=== PATIENT | female | born 1950 | race Hispanic/Latino ===

== ENCOUNTER 2017-07-19 22:41 | Emergency (ER) | payer OTHER ==
[~2017-07-19] VITALS: Ht 152.4 cm; Wt 69.9 kg
[2017-07-20] MEDS ORDERED: SODIUM CHLORIDE 0.9% 1000ML 1,000 ML IV STA (00:39)
[2017-07-20] MEDS ORDERED: ONDANSETRON HCL INJ 2 MG/ML VIAL IV STA (00:39)
[2017-07-20] MEDS ORDERED: MORPHINE SULFATE 2 MG/ML SYR IV STA (00:39)
[2017-07-20 00:57] LABS: BASOPHILS # (AUTO) 0.1 (0.0-0.1); BASOPHILS % 0.8 % (0.0-1.0); EOSINOPHILS # (AUTO) 0.2 (0.0-0.4); EOSINOPHILS % 1.6 % (0.0-6.0); HEMATOCRIT 37.7 % (34.2-44.1); HEMOGLOBIN 12.5 g/dL (12.0-16.0); LYMPHOCYTES # (AUTO) 2.2 (1.0-3.2); LYMPHOCYTES % 21.2 % (18.0-39.1); MEAN CORPUSCULAR HEMOGLOBIN 31.1 pg (28-32); MEAN CORPUSCULAR HGB CONC 33.2 g/dL (31-35); MEAN CORPUSCULAR VOLUME 93.8 fL (81-99); MONOCYTES # (AUTO) 0.7 (0.2-0.8); MONOCYTES % 7.1 % (4.4-11.3); NEUTROPHILS # (AUTO) 7.2 (2.1-6.9); NEUTROPHILS % 69.1 % (38.7-80.0); PLATELET COUNT 276 x10e3/uL (140-360); RED BLOOD COUNT 4.02 x10e6/uL (3.6-5.1); RED CELL DISTRIBUTION WIDTH 13.1 % (11.7-14.4)
[2017-07-20 00:59] LABS: BILIRUBIN,URINE NEGATIVE (NEGATIVE); CLARITY,URINE CLEAR (CLEAR); COLOR,URINE YELLOW (YELLOW); KETONES,URINE NEGATIVE (NEGATIVE); LEUKOCYTE ESTERASE ,URINE NEGATIVE (NEGATIVE); NITRITE,URINE NEGATIVE (NEGATIVE); PROTEIN,URINE DIPSTICK NEGATIVE (NEGATIVE); URINE UROBILINOGEN 0.2 mg/dL (0.2 - 1)
[2017-07-20 01:09] LABS: INR 0.94; PROTHROMBIN TIME 11.8 seconds (11.9-14.5)
[2017-07-20 01:10] LABS: PARTIAL THROMBOPLASTIN TIME 27.3 seconds (23.8-35.5)
[2017-07-20 01:13] LABS: BACTERIA,URINE RARE /HPF; EPITHELIAL CELLS,URINE RARE /LPF; RBC,URINE 0-5 /HPF (0-5); TRANSITIONAL EPI CELLS,URINE FEW; WBC,URINE (MAN) 0-5 /HPF (0-5)
[2017-07-20 01:22] LABS: ALANINE AMINOTRANSFERASE 11 IU/L (0-55); ALBUMIN 4.1 g/dL (3.5-5.0); ALBUMIN/GLOBULIN RATIO 1.1 (0.8-2.0); ALKALINE PHOSPHATASE 80 IU/L (40-150); AMYLASE 55 U/L (25-125); ANION GAP 13.9 mmol/L (8-16); BLOOD UREA NITROGEN 15 mg/dL (7-26); BUN/CREATININE RATIO 21 (6-25); CALCIUM 9.7 mg/dL (8.4-10.2); CARBON DIOXIDE 25 mmol/L (22-29); CHLORIDE 106 mmol/L (98-107); CREATINE KINASE 111 IU/L (29-168); CREATININE, SERUM 0.73 mg/dL (0.57-1.11); EST GLOMERULAR FILTRATION RATE > 60 ML/MIN (60-); GLUCOSE 129 mg/dL (74-118); LIPASE 14 U/L (8-78); MAGNESIUM 1.7 MG/DL (1.3-2.1); POTASSIUM 3.9 mmol/L (3.5-5.1); SODIUM 141 mmol/L (136-145)
--- NOTE | 2017-07-20 02:42 | Diagnostic Imaging Report ---
EXAM: CT ABDOMEN/PELVIS W DATE: 07/20/2017 12:39 AM INDICATION: \S\RIGHT-SIDED ABD MASS, TENDER \S\[id number] \S\[id number] COMPARISON: None TECHNIQUE: The abdomen and pelvis were scanned using a multidetector helical scanner. Coronal and sagittal reformations were obtained. Routine protocol performed. IV Contrast: 100 ml Isovue 370 FINDINGS: LOWER THORAX: No consolidations LIVER/BILIARY: No masses. No ductal dilatation. GALLBLADDER: Fundal calcifications (wall calcification or adherent stones) and 1.8 cm soft tissue density. SPLEEN: Unremarkable PANCREAS: Unremarkable ADRENALS: No nodules KIDNEYS: Symmetric perfusion. 1 cm left inferior renal lesion is technically indeterminate (HU 41). Too small to characterize right right renal hypodensity. No hydronephrosis. GI TRACT: The cecum herniates through right lateral ventral/Spigelian hernia without wall thickening or obstruction. The appendix is normal. VESSELS: Unremarkable PERITONEUM/RETROPERITONEUM: No free air or fluid LYMPH NODES: No lymphadenopathy REPRODUCTIVE ORGANS/BLADDER: Calcified left fundal fibroid. SOFT TISSUES: Bowel containing right lateral/ventral hernia as above. Small fat-containing right inguinal hernia. BONES: Multilevel degenerative changes with grade 1 anterolisthesis of L4 over L5 IMPRESSION: 1. Right lateral ventral/Spigelian hernia containing cecum without evidence of obstruction or bowel wall thickening or free fluid. 2. Gallbladder fundal soft tissue and calcification in the. Given anti-dependent location, this could reflect polyp/neoplasm. Recommend follow-up RUQ/abdominal ultrasound. 3. Indeterminate 1 cm left inferior renal lesion. This can be assessed at abdominal ultrasound or follow-up renal mass protocol CT. Signed by: Dr Cande Stevens MD on 07/20/2017 2:38 AM
[2017-07-20] MEDS ORDERED: IOPAMIDOL 370 MG/ML 200 ML INFUS..BTL INJ ONE (03:18)
[2017-07-20] MEDS ORDERED: SODIUM CHLORIDE 0.9% 50ML 50 ML ONE (03:18)
== END 2017-07-20 04:00 | disposition home or self-care (01) ==
LOC: ER 22:41
DX: K43.2 Incisional hernia without obstruction or gangrene (principal); R10.31 Right lower quadrant pain; K82.8 Other specified diseases of gallbladder
CPT/HCPCS: 36415; 74177; 80053; 81001; 82150; 82550; 82553; 83690; 83735; 84484; 85025; 85610; 85730; 99284; J2270; J2405; J7030; Q9967

== ENCOUNTER 2017-10-26 20:01 | Inpatient (IN) | payer MEDICARE ==
[~2017-10-26] VITALS: Ht 152.4 cm; Wt 77.4 kg
[2017-10-26] MEDS ORDERED: SODIUM CHLORIDE 0.9% 1000ML 1,000 ML IV SCH (20:28)
[2017-10-26 20:48] LABS: BASOPHILS # (AUTO) 0.1 (0.0-0.1); BASOPHILS % 0.6 % (0.0-1.0); EOSINOPHILS # (AUTO) 0.1 (0.0-0.4); EOSINOPHILS % 1.5 % (0.0-6.0); HEMATOCRIT 34.2 % (34.2-44.1); HEMOGLOBIN 11.7 g/dL (12.0-16.0); LYMPHOCYTES # (AUTO) 2.5 (1.0-3.2); LYMPHOCYTES % 32.3 % (18.0-39.1); MEAN CORPUSCULAR HEMOGLOBIN 31.5 pg (28-32); MEAN CORPUSCULAR HGB CONC 34.2 g/dL (31-35); MEAN CORPUSCULAR VOLUME 91.9 fL (81-99); MONOCYTES # (AUTO) 0.5 (0.2-0.8); MONOCYTES % 6.6 % (4.4-11.3); NEUTROPHILS # (AUTO) 4.6 (2.1-6.9); NEUTROPHILS % 58.7 % (38.7-80.0); PLATELET COUNT 256 x10e3/uL (140-360); RED BLOOD COUNT 3.72 x10e6/uL (3.6-5.1); RED CELL DISTRIBUTION WIDTH 13.5 % (11.7-14.4)
[2017-10-26 20:53] LABS: BILIRUBIN,URINE NEGATIVE (NEGATIVE); CLARITY,URINE SL CLOUDY (CLEAR); COLOR,URINE YELLOW (YELLOW); KETONES,URINE NEGATIVE (NEGATIVE); LEUKOCYTE ESTERASE ,URINE TRACE (NEGATIVE); NITRITE,URINE NEGATIVE (NEGATIVE); PROTEIN,URINE DIPSTICK NEGATIVE (NEGATIVE); URINE UROBILINOGEN 0.2 mg/dL (0.2 - 1)
[2017-10-26] MEDS ORDERED: MORPHINE SULFATE 2 MG/ML SYR IV STA ×2 (21:01→23:34)
[2017-10-26] MEDS ORDERED: ONDANSETRON HCL INJ 2 MG/ML VIAL IV STA (21:01)
[2017-10-26] MEDS ORDERED: SODIUM CHLORIDE 0.9% 1000ML 1,000 ML IV STA (21:01)
[2017-10-26 21:03] LABS: BACTERIA,URINE RARE /HPF; EPITHELIAL CELLS,URINE FEW /LPF; MUCUS,URINE MODERATE (RARE); WBC,URINE (MAN) 0-5 /HPF (0-5)
[2017-10-26 21:06] LABS: ALANINE AMINOTRANSFERASE 17 IU/L (0-55); ALBUMIN 4.1 g/dL (3.5-5.0); ALBUMIN/GLOBULIN RATIO 1.2 (0.8-2.0); ALKALINE PHOSPHATASE 74 IU/L (40-150); ANION GAP 13.8 mmol/L (8-16); BLOOD UREA NITROGEN 14 mg/dL (7-26); BUN/CREATININE RATIO 17 (6-25); CALCIUM 9.9 mg/dL (8.4-10.2); CARBON DIOXIDE 24 mmol/L (22-29); CHLORIDE 105 mmol/L (98-107); CREATININE, SERUM 0.83 mg/dL (0.57-1.11); EST GLOMERULAR FILTRATION RATE > 60 ML/MIN (60-); GLUCOSE 108 mg/dL (74-118); POTASSIUM 3.8 mmol/L (3.5-5.1); SODIUM 139 mmol/L (136-145)
[2017-10-26 21:07] LABS: AMYLASE 52 U/L (25-125); LIPASE 12 U/L (8-78)
[2017-10-26] MEDS ORDERED: SODIUM CHLORIDE 0.9% 50ML 50 ML ONE (21:55)
[2017-10-26] MEDS ORDERED: IOPAMIDOL 370 MG/ML 200 ML INFUS..BTL INJ ONE (21:56)
[2017-10-27] VITALS (7 sets, daily range): BP systolic 103–114; BP diastolic 55–58
--- NOTE | 2017-10-27 01:06 | Diagnostic Imaging Report ---
EXAM: CT ABDOMEN/PELVIS WOW DATE: 10/26/2017 8:36 PM INDICATION: Renal mass protocol COMPARISON: 07/20/2017 TECHNIQUE: The abdomen and pelvis were scanned using a multidetector helical scanner. Coronal and sagittal reformations were obtained. Renal mass protocol performed. IV Contrast: 100 ml Isovue 370 FINDINGS: LOWER THORAX: No consolidations LIVER/BILIARY: No masses. No ductal dilatation. GALLBLADDER: There is again fundal wall calcification and irregular 1.8 cm soft tissue along the fundus, which appears to enhance though difficult to accurately measure (HU 58 noncontrast, 77-82 postcontrast). SPLEEN: Unremarkable PANCREAS: Mildly atrophic, unchanged ADRENALS: No nodules KIDNEYS: Symmetric perfusion. 1 cm left inferior renal lesion does not enhance compatible with a cyst (HU 25 noncontrast, 20 post contrast, 22 delayed phase). Too small to characterize right right renal hypodensity. No hydronephrosis. GI TRACT: The cecum herniates through right lateral ventral/Spigelian hernia without wall thickening or obstruction. The appendix is normal. VESSELS: Mild atherosclerotic changes. PERITONEUM/RETROPERITONEUM: No free air or fluid LYMPH NODES: No lymphadenopathy REPRODUCTIVE ORGANS/BLADDER: Calcified left fundal fibroid. SOFT TISSUES: Bowel containing right lateral/ventral hernia as above. Small fat-containing right inguinal hernia. BONES: Multilevel degenerative changes with grade 1 anterolisthesis of L4 over L5 IMPRESSION: 1. Stable right lateral ventral/Spigelian hernia containing cecum without evidence of obstruction or bowel wall thickening. 2. Stable gallbladder fundal irregular soft tissue and wall calcification. Given anti-dependent location, this is suspicious for neoplasm. Recommend nonemergent gallbladder ultrasound and surgical consultation. 3. Stable 1 cm left inferior renal lesion compatible with a cyst Signed by: Dr Cande Stevens MD on 10/27/2017 1:02 AM
[2017-10-27] MEDS ORDERED: SODIUM CHLORIDE 0.9% 1000ML 1,000 ML IV SCH (02:06)
[2017-10-27] MEDS ORDERED: PANTOPRAZOLE 40 MG 10ML VIAL IV STA (02:06)
[2017-10-27] MEDS ORDERED: DEXTROSE 50% SYRINGE 50 ML IV PRN (02:15)
[2017-10-27] MEDS: SODIUM CHLORIDE 0.9% 1000ML 1,000 ML IV SCH ×3 (02:32→17:36)
--- NOTE | 2017-10-27 04:17 | Diagnostic Imaging Report ---
EXAM: US GALLBLADDER DATE: 10/27/2017 2:06 AM INDICATION: \S\RUQ PAIN \S\[id number] \S\[id number] \S\Y, COMPARISON: CT from 10/26/2017 TECHNIQUE: Transverse and longitudinal leon scale and color doppler sonographic images of the upper abdomen were obtained. FINDINGS: Evaluation is mildly degraded by overlying bowel gas. LIVER 15.5 cm in the right midclavicular line. Slightly increased echogenicity, normal contour, no masses. GALLBLADDER Positive for stones and sludge. The gallbladder wall is mildly thickened measuring 4 mm. The fundal wall calcification and apparent fundal soft tissue on the CT is poorly assessed. No pericholecystic fluid. Negative sonographic Marcelino's sign. BILE DUCTS Mild dilation of the common bile duct 1.2 cm. Common bile duct measures 1.2 cm PANCREAS: Not well seen due to overlying bowel gas RIGHT KIDNEY: 9.3 cm Echogenicity: Normal Collecting System: No hydronephrosis Stones: None Cyst/Mass: None VESSELS: Aorta: Visualized portions are within normal size limits Inferior Vena Cava: Visualized portions are normal Main Portal Vein: 0.8 cm, normal size with hepatopetal flow. FREE FLUID: None IMPRESSION: 1. Cholelithiasis/sludge with mild gallbladder wall thickening, but no pericholecystic fluid or Marcelino's sign. The fundal wall calcification and apparent fundal soft tissue on the CT is poorly assessed due to overlying bowel gas. 2. Mild extrahepatic biliary ductal dilation. Correlate with bilirubin. 3. Question mild hepatic steatosis. Discussed with Physician: MIAH WOLF MD at 4:08 AM on 10/27/2017. Signed by: Dr Cande Stevens MD on 10/27/2017 4:13 AM
[2017-10-27] MEDS ORDERED: METFORMIN HCL500 MG PO (04:26)
[2017-10-27] MEDS ORDERED: SIMVASTATIN20 MG PO (04:26)
[2017-10-27] MEDS ORDERED: VASOTEC10 M1 PO (04:26)
[2017-10-27] MEDS ORDERED: ASPIR 8181 MG PO (04:26)
[2017-10-27] MEDS ORDERED: AMLODIPINE BESY10 MG PO (04:26)
[2017-10-27] MEDS ORDERED: CENTRUM SILVER1 EAC3 PO (04:26)
[2017-10-27 05:23] LABS: CREATINE KINASE 85 IU/L (29-168)
[2017-10-27] MEDS: PIPER-TAZ 3.375 GM / NS 50ML IV SCH ×3 (06:06→17:01)
[2017-10-27] MEDS: INSULIN REGULAR, HUMAN 100 UNIT/1 ML 3ML VIAL SQ SCH ×4 (07:30→21:08)
[2017-10-27] MEDS ORDERED: HYDRALAZINE HCL 20 MG/ML VIAL IV PRN (08:00)
[2017-10-27] MEDS ORDERED: ACETAMINOPHEN 325 MG TAB PO PRN (08:00)
[2017-10-27] MEDS ORDERED: ACETAMINOPHEN 325 MG SUPP PR PRN (08:00)
[2017-10-27] MEDS: PANTOPRAZOLE 40 MG 10ML VIAL IV SCH (08:07)
[2017-10-27] MEDS: AMLODIPINE BESYLATE 10 MG TAB PO SCH (08:07)
[2017-10-27] MEDS: ENALAPRIL MALEATE 10 MG TAB PO SCH (08:08)
[2017-10-27 13:15] LABS: CREATINE KINASE 81 IU/L (29-168)
--- NOTE | 2017-10-27 20:38 | Consultation ---
DATE OF CONSULTATION: October 27, 2017 CHIEF COMPLAINT: Abdominal pain. HISTORY OF PRESENT ILLNESS: The patient is a 67-year-old female with 1-day history of pain in right lower quadrant with nausea, but no vomiting. The patient has had this pain in the past and is known to have a spigelian hernia. She denied vomiting, constipations, or diarrhea. No fevers. PAST MEDICAL HISTORY: Significant for diabetes and hypertension. PAST SURGICAL HISTORY: Positive for , inguinal and incisional hernia repair, and shoulder and knee surgery. ALLERGIES: SHE HAS NO DRUG ALLERGIES. SOCIAL HISTORY: Does not smoke or drink alcohol. REVIEW OF SYSTEMS: Unremarkable except for current complaint. PHYSICAL EXAMINATION VITAL SIGNS: Stable, afebrile. GENERAL: Patient is awake and alert, in no apparent distress. HEENT: Sclerae anicteric. NECK: Supple. LUNGS: Clear. HEART: Regular rate and rhythm. ABDOMEN: Soft with some right lower quadrant tenderness to palpation without a mass palpable. EXTREMITIES: Without cyanosis or edema. LABORATORY DATA: White cell count is 7 and hemoglobin of 12. Creatinine is 0.8. IMAGING DATA: CT of the abdomen showed stable right lateral ventral spigelian hernia containing cecum without obstruction. Ultrasound of the gallbladder revealed gallstones and sludge with mild wall thickening. There is wall calcification. ASSESSMENT: Abdominal pain secondary to spigelian hernia, nonobstructive. There is gallstone with possible chronic cholecystitis. PLAN: Laparoscopic cholecystectomy and spigelian hernia repair under anesthesia. Attendant risks discussed. Job#: [id number] JAMAR
[2017-10-27] MEDS: SIMVASTATIN 20 MG TAB PO SCH (21:08)
[2017-10-28] VITALS: BP 111/54
[2017-10-28] MEDS: PIPER-TAZ 3.375 GM / NS 50ML IV SCH ×5 (00:09→23:48)
[2017-10-28] MEDS: SODIUM CHLORIDE 0.9% 1000ML 1,000 ML IV SCH (00:11)
[2017-10-28 00:38] LABS: CREATINE KINASE 71 IU/L (29-168)
[2017-10-28 04:00] VITALS: BP 108/51
[2017-10-28 04:41] LABS: BASOPHILS % 0.9 % (0.0-1.0); EOSINOPHILS # (AUTO) 0.1 (0.0-0.4); EOSINOPHILS % 2.8 % (0.0-6.0); HEMATOCRIT 29.9 % (34.2-44.1); HEMOGLOBIN 9.9 g/dL (12.0-16.0); LYMPHOCYTES # (AUTO) 0.9 (1.0-3.2); LYMPHOCYTES % 19.6 % (18.0-39.1); MEAN CORPUSCULAR HGB CONC 33.1 g/dL (31-35); MEAN CORPUSCULAR VOLUME 93.7 fL (81-99); MONOCYTES # (AUTO) 0.4 (0.2-0.8); MONOCYTES % 8.7 % (4.4-11.3); NEUTROPHILS # (AUTO) 3.2 (2.1-6.9); NEUTROPHILS % 67.8 % (38.7-80.0); PLATELET COUNT 193 x10e3/uL (140-360); RED BLOOD COUNT 3.19 x10e6/uL (3.6-5.1); RED CELL DISTRIBUTION WIDTH 13.5 % (11.7-14.4)
[2017-10-28 04:59] LABS: CHOL/HDL RATIO 2.4 (3.0-3.6); MAGNESIUM 1.7 MG/DL (1.3-2.1)
[2017-10-28 05:01] LABS: ALANINE AMINOTRANSFERASE 13 IU/L (0-55); ALBUMIN/GLOBULIN RATIO 1.3 (0.8-2.0); ALKALINE PHOSPHATASE 56 IU/L (40-150); ANION GAP 9.8 mmol/L (8-16); BLOOD UREA NITROGEN 10 mg/dL (7-26); BUN/CREATININE RATIO 14 (6-25); CALCIUM 8.7 mg/dL (8.4-10.2); CARBON DIOXIDE 25 mmol/L (22-29); CHLORIDE 112 mmol/L (98-107); CREATININE, SERUM 0.74 mg/dL (0.57-1.11); EST GLOMERULAR FILTRATION RATE > 60 ML/MIN (60-); GLUCOSE 109 mg/dL (74-118); POTASSIUM 3.8 mmol/L (3.5-5.1); SODIUM 143 mmol/L (136-145)
[2017-10-28 05:10] LABS: ALBUMIN 3.1 g/dL (3.5-5.0)
[2017-10-28 05:14] LABS: B-TYPE NATRIURETIC PEPTIDE2 144.9 pg/mL (0-100)
[2017-10-28 05:21] LABS: FREE T4 (FREE THYROXINE) 0.89 ng/dL (0.9-1.8); THYROID STIMULATING HORMONE 1.74 uIU/mL (0.350-4.940)
[2017-10-28] MEDS: INSULIN REGULAR, HUMAN 100 UNIT/1 ML 3ML VIAL SQ SCH ×4 (07:30→21:00)
[2017-10-28] MEDS: PANTOPRAZOLE 40 MG 10ML VIAL IV SCH (08:20)
[2017-10-28] MEDS: AMLODIPINE BESYLATE 10 MG TAB PO SCH (08:20)
[2017-10-28] MEDS: ENALAPRIL MALEATE 10 MG TAB PO SCH (09:00)
[2017-10-28] MEDS ORDERED: SODIUM CHLORIDE 0.9% 250ML 250 ML ONE (12:25)
[2017-10-28 16:42] VITALS: BP 119/55
[2017-10-28 20:00] VITALS: BP 126/58
[2017-10-28] MEDS: SIMVASTATIN 20 MG TAB PO SCH (21:03)
[2017-10-28 23:05] VITALS: BP 126/58
[2017-10-29] VITALS (7 sets, daily range): BP systolic 107–131; BP diastolic 51–62
[2017-10-29 04:05] LABS: BASOPHILS % 0.6 % (0.0-1.0); EOSINOPHILS # (AUTO) 0.1 (0.0-0.4); EOSINOPHILS % 2.7 % (0.0-6.0); HEMATOCRIT 33.3 % (34.2-44.1); HEMOGLOBIN 11.1 g/dL (12.0-16.0); LYMPHOCYTES # (AUTO) 1.2 (1.0-3.2); LYMPHOCYTES % 22.8 % (18.0-39.1); MEAN CORPUSCULAR HEMOGLOBIN 31.2 pg (28-32); MEAN CORPUSCULAR HGB CONC 33.3 g/dL (31-35); MEAN CORPUSCULAR VOLUME 93.5 fL (81-99); MONOCYTES # (AUTO) 0.4 (0.2-0.8); MONOCYTES % 8.5 % (4.4-11.3); NEUTROPHILS # (AUTO) 3.4 (2.1-6.9); NEUTROPHILS % 65.2 % (38.7-80.0); PLATELET COUNT 214 x10e3/uL (140-360); RED BLOOD COUNT 3.56 x10e6/uL (3.6-5.1); RED CELL DISTRIBUTION WIDTH 13.5 % (11.7-14.4)
[2017-10-29 04:27] LABS: ANION GAP 13.5 mmol/L (8-16); BLOOD UREA NITROGEN 8 mg/dL (7-26); BUN/CREATININE RATIO 11 (6-25); CALCIUM 9.3 mg/dL (8.4-10.2); CARBON DIOXIDE 24 mmol/L (22-29); CHLORIDE 110 mmol/L (98-107); CREATININE, SERUM 0.76 mg/dL (0.57-1.11); EST GLOMERULAR FILTRATION RATE > 60 ML/MIN (60-); GLUCOSE 107 mg/dL (74-118); POTASSIUM 3.5 mmol/L (3.5-5.1); SODIUM 144 mmol/L (136-145)
[2017-10-29] MEDS: PIPER-TAZ 3.375 GM / NS 50ML IV SCH ×3 (06:35→17:51)
[2017-10-29] MEDS: INSULIN REGULAR, HUMAN 100 UNIT/1 ML 3ML VIAL SQ SCH ×4 (07:30→21:00)
[2017-10-29] MEDS ORDERED: PIPER-TAZ 3.375 GM 50 ML ONE (12:30)
[2017-10-29] MEDS: ONDANSETRON HCL INJ 2 MG/ML VIAL IV PRN ×2 (13:41→19:15)
[2017-10-29] MEDS: MORPHINE SULFATE 2 MG/ML SYR IV PRN ×3 (13:41→23:29)
[2017-10-29] MEDS: ENALAPRIL MALEATE 10 MG TAB PO SCH (14:00)
[2017-10-29] MEDS: AMLODIPINE BESYLATE 10 MG TAB PO SCH (14:00)
--- NOTE | 2017-10-29 14:34 | Operative Report ---
DATE OF PROCEDURE: October 29, 2017 PREOPERATIVE DIAGNOSIS: 1. Cholecystitis. 2. Right spigelian hernia. POSTOPERATIVE DIAGNOSIS: 1. Cholecystitis. 1. Right spigelian hernia. OPERATIVE PROCEDURE: 1. Laparoscopic cholecystectomy. 2. Right spigelian hernia repair. ANESTHESIA: General endotracheal. INDICATIONS: A 67-year-old female with a history of right lower quadrant pain, and CT scan showed incarcerated right spigelian hernia. The gallbladder also showed calcification with chronic inflammation. Patient had consented for a cholecystectomy and repair of right spigelian hernia with the attendant risks discussed. DESCRIPTION OF PROCEDURE: The patient was brought to the OR, intubated. Abdomen prepped with alcohol and draped in sterile fashion. A left upper quadrant subcostal direct port access was carried out and insufflation then begun. Under direct vision, other port sites were placed in the umbilical and right upper quadrant. The gallbladder was noted to be chronically inflamed. There was a mass in the fundal aspect of the gallbladder, which was grasped at the fundus and retracted in a cephalad direction, the neck of the gallbladder retracted laterally. With blunt and sharp dissection, cystic artery and cystic duct were isolated and triple-clipped with the junction with the common bile duct noted before dividing the cystic artery and cystic duct between clips. Gallbladder detached from the liver with cautery and taken out through the umbilical port site. Operative field was irrigated, hemostasis achieved. We then made a right lower quadrant incision down to the external oblique fascia, which was then incised in the direction of its fibers. The underlying muscle was split, and the hernia defect was noted. A large hernia sac was dissected off the edge of the abdominal wall, and the preperitoneal space was developed circumferentially down to the Darnell ligament medially and the iliac crest laterally. We then proceeded to deploy a large piece of Prolene mesh 6 x 4 inches then deployed into the preperitoneal space and anchored medially to the Darnell ligament with a stitch of 2-0 Prolene suture. With the mesh covering the defect and the wound irrigated, hemostasis achieved, we then proceeded to close, the muscular layers closed with interrupted 2-0 Vicryl anchoring the mesh into the closure. The external oblique fascia was then closed over the abdominal wall muscle with a running 2-0 Prolene stitch. Skin was closed with subcuticular stitch of 4-0 Vicryl. Patient tolerated the procedure well and was extubated and transported to the recovery room. Estimated blood loss 10 mL. Job#: [id number] EV
[2017-10-29] MEDS ORDERED: MIDAZOLAM HCL 2 MG/2 ML VIAL ONE (14:50)
[2017-10-29] MEDS ORDERED: FENTANYL CITRATE/PF 100MCG/2 ML INJ ONE (14:50)
[2017-10-29] MEDS: PANTOPRAZOLE 40 MG 10ML VIAL IV SCH (15:22)
[2017-10-29] MEDS ORDERED: BUPIVACAINE 0.5%/EPI 30 ML SDV INJ ONE (17:46)
[2017-10-29] MEDS ORDERED: DEXAMETHASONE SOD PHOS INJ 4 MG/ML VIAL ONE (17:54)
[2017-10-29] MEDS ORDERED: PROPOFOL IV EMULSION 10 MG/ML 20 ML VIAL ONE (17:54)
[2017-10-29] MEDS ORDERED: ROCURONIUM BROMIDE 10 MG/ML 5ML VIAL ONE (17:54)
[2017-10-29] MEDS ORDERED: ONDANSETRON HCL INJ 2 MG/ML VIAL ONE (17:54)
[2017-10-29] MEDS ORDERED: LIDOCAINE HCL 2% LOCAL INJ 5 ML SDV VIAL INJ ONE (17:54)
[2017-10-29] MEDS ORDERED: EPHEDRINE SULFATE INJ 50 MG/10 ML SYR ONE (17:54)
[2017-10-29] MEDS ORDERED: SEVOFLURANE INHAL SOLN 250 ML PEN BTL ONE (17:54)
[2017-10-29] MEDS ORDERED: NEOSTIGMINE 5 MG/5ML SYR ONE (17:54)
[2017-10-29] MEDS ORDERED: GLYCOPYRROLATE INJ 1MG/ 5 ML SYR ONE (17:54)
[2017-10-29] MEDS ORDERED: CEFOXITIN SOD 1 GM VIAL ONE (17:54)
[2017-10-29] MEDS: SIMVASTATIN 20 MG TAB PO SCH (21:00)
[2017-10-30] VITALS (8 sets, daily range): BP systolic 103–149; BP diastolic 52–67
[2017-10-30] MEDS: ONDANSETRON HCL INJ 2 MG/ML VIAL IV PRN (00:10)
[2017-10-30] MEDS: PIPER-TAZ 3.375 GM / NS 50ML IV SCH ×4 (00:10→17:45)
[2017-10-30] MEDS ORDERED: MORPHINE SULFATE 2 MG/ML SYR IV PRN ×2 (02:45→11:45)
[2017-10-30 03:52] LABS: BASOPHILS % 0.2 % (0.0-1.0); EOSINOPHILS % 0.1 % (0.0-6.0); HEMATOCRIT 35.9 % (34.2-44.1); LYMPHOCYTES # (AUTO) 0.8 (1.0-3.2); LYMPHOCYTES % 5.1 % (18.0-39.1); MEAN CORPUSCULAR HEMOGLOBIN 31.3 pg (28-32); MEAN CORPUSCULAR HGB CONC 33.4 g/dL (31-35); MEAN CORPUSCULAR VOLUME 93.5 fL (81-99); MONOCYTES # (AUTO) 0.9 (0.2-0.8); MONOCYTES % 5.7 % (4.4-11.3); NEUTROPHILS # (AUTO) 13.7 (2.1-6.9); NEUTROPHILS % 88.4 % (38.7-80.0); PLATELET COUNT 251 x10e3/uL (140-360); RED BLOOD COUNT 3.84 x10e6/uL (3.6-5.1); RED CELL DISTRIBUTION WIDTH 13.6 % (11.7-14.4)
[2017-10-30 04:11] LABS: ALBUMIN 3.9 g/dL (3.5-5.0); ANION GAP 18.3 mmol/L (8-16); BILIRUBIN,DIRECT 0.4 mg/dL (0.0-0.5); CALCIUM 9.9 mg/dL (8.4-10.2); CREATININE, SERUM 1.01 mg/dL (0.57-1.11); MAGNESIUM 1.6 MG/DL (1.3-2.1); POTASSIUM 3.3 mmol/L (3.5-5.1)
[2017-10-30] MEDS: INSULIN REGULAR, HUMAN 100 UNIT/1 ML 3ML VIAL SQ SCH ×4 (07:30→21:00)
[2017-10-30] MEDS: PANTOPRAZOLE 40 MG 10ML VIAL IV SCH (08:41)
[2017-10-30] MEDS: ENALAPRIL MALEATE 10 MG TAB PO SCH (08:42)
[2017-10-30] MEDS: AMLODIPINE BESYLATE 10 MG TAB PO SCH (08:42)
[2017-10-30] MEDS ORDERED: POTASSIUM CHLORIDE 20 MEQ TAB CR PO NR (10:00)
[2017-10-30] MEDS: HYDROCODONE/APAP 5MG-325MG TAB PO PRN ×4 (10:05→21:17)
[2017-10-30] MEDS: DOCUSATE SODIUM 100 MG CAP PO SCH (17:45)
[2017-10-30] MEDS: SIMVASTATIN 20 MG TAB PO SCH (21:17)
[2017-10-31] VITALS (9 sets, daily range): BP systolic 99–135; BP diastolic 49–63
[2017-10-31] MEDS: PIPER-TAZ 3.375 GM / NS 50ML IV SCH ×4 (01:12→18:06)
[2017-10-31] MEDS: HYDROCODONE/APAP 5MG-325MG TAB PO PRN ×2 (05:13→10:24)
[2017-10-31] MEDS: INSULIN REGULAR, HUMAN 100 UNIT/1 ML 3ML VIAL SQ SCH ×4 (07:30→20:42)
[2017-10-31] MEDS: AMLODIPINE BESYLATE 10 MG TAB PO SCH (10:00)
[2017-10-31] MEDS: PANTOPRAZOLE 40 MG 10ML VIAL IV SCH (10:00)
[2017-10-31] MEDS: ENALAPRIL MALEATE 10 MG TAB PO SCH (10:00)
[2017-10-31] MEDS: DOCUSATE SODIUM 100 MG CAP PO SCH ×2 (10:00→17:20)
[2017-10-31 12:55] LABS: BASOPHILS % 0.3 % (0.0-1.0); EOSINOPHILS % 0.1 % (0.0-6.0); HEMATOCRIT 33.3 % (34.2-44.1); HEMOGLOBIN 11.2 g/dL (12.0-16.0); LYMPHOCYTES % 6.1 % (18.0-39.1); MEAN CORPUSCULAR HEMOGLOBIN 30.9 pg (28-32); MEAN CORPUSCULAR HGB CONC 33.6 g/dL (31-35); NEUTROPHILS # (AUTO) 13.8 (2.1-6.9); NEUTROPHILS % 87.1 % (38.7-80.0); PLATELET COUNT 229 x10e3/uL (140-360); RED BLOOD COUNT 3.62 x10e6/uL (3.6-5.1); RED CELL DISTRIBUTION WIDTH 13.7 % (11.7-14.4)
[2017-10-31 13:17] LABS: ANION GAP 13.8 mmol/L (8-16); BLOOD UREA NITROGEN 13 mg/dL (7-26); BUN/CREATININE RATIO 17 (6-25); CALCIUM 9.7 mg/dL (8.4-10.2); CARBON DIOXIDE 23 mmol/L (22-29); CHLORIDE 105 mmol/L (98-107); CREATININE, SERUM 0.78 mg/dL (0.57-1.11); EST GLOMERULAR FILTRATION RATE > 60 ML/MIN (60-); GLUCOSE 170 mg/dL (74-118); MAGNESIUM 1.6 MG/DL (1.3-2.1); POTASSIUM 3.8 mmol/L (3.5-5.1); SODIUM 138 mmol/L (136-145)
--- NOTE | 2017-10-31 13:53 | Diagnostic Imaging Report ---
PROCEDURE: A single AP view of the chest. COMPARISON: Abdominal CT 10/26/2017 INDICATIONS: PNEUMONIA FINDINGS: Lines/tubes: None. Lungs: The lungs are poorly inflated. There is mild bibasilar opacities likely representing atelectasis. No evidence of pneumonia or pulmonary edema. Pleura: Possible trace right pleural effusion. No left pleural effusion. No pneumothorax. Heart and mediastinum: The heart and the mediastinum are unremarkable. Bones: No acute bony abnormality. IMPRESSION: Low lung volumes with bibasilar atelectasis. Possible trace right pleural effusion. Dictated by: Lamine Ross M.D. on 10/31/2017 at 13:57 Electronically approved by: Lamine Ross M.D. on 10/31/2017 at 13:57
[2017-10-31] MEDS: METFORMIN HCL 500 MG TAB PO SCH (17:20)
[2017-10-31 17:42] LABS: CLARITY,URINE CLEAR (CLEAR); COLOR,URINE YELLOW (YELLOW)
[2017-10-31 17:43] LABS: BILIRUBIN,URINE NEGATIVE (NEGATIVE); KETONES,URINE NEGATIVE (NEGATIVE); LEUKOCYTE ESTERASE ,URINE NEGATIVE (NEGATIVE); NITRITE,URINE NEGATIVE (NEGATIVE); PROTEIN,URINE DIPSTICK 1+ (NEGATIVE); URINE UROBILINOGEN 0.2 mg/dL (0.2 - 1)
[2017-10-31 18:10] LABS: BACTERIA,URINE FEW /HPF; EPITHELIAL CELLS,URINE FEW /LPF; RBC,URINE 0-5 /HPF (0-5); WBC,URINE (MAN) 21-50 /HPF (0-5)
[2017-10-31 18:11] LABS: MUCUS,URINE FEW (RARE); TRANSITIONAL EPI CELLS,URINE FEW
[2017-10-31] MEDS: ACETAMINOPHEN/CODEINE 300MG - 30MG TAB PO PRN (19:30)
[2017-10-31] MEDS: TRAMADOL HCL 50 MG TAB PO PRN (20:42)
[2017-10-31] MEDS: SIMVASTATIN 20 MG TAB PO SCH (20:42)
[2017-11-01] VITALS: BP 103/50
[2017-11-01] MEDS: PIPER-TAZ 3.375 GM / NS 50ML IV SCH ×5 (00:16→23:19)
[2017-11-01] MEDS: ACETAMINOPHEN/CODEINE 300MG - 30MG TAB PO PRN (00:17)
[2017-11-01 03:59] LABS: BASOPHILS # (AUTO) 0.1 (0.0-0.1); BASOPHILS % 0.4 % (0.0-1.0); EOSINOPHILS # (AUTO) 0.2 (0.0-0.4); EOSINOPHILS % 1.5 % (0.0-6.0); HEMATOCRIT 29.4 % (34.2-44.1); HEMOGLOBIN 9.9 g/dL (12.0-16.0); LYMPHOCYTES # (AUTO) 1.3 (1.0-3.2); LYMPHOCYTES % 9.8 % (18.0-39.1); MEAN CORPUSCULAR HEMOGLOBIN 31.2 pg (28-32); MEAN CORPUSCULAR HGB CONC 33.7 g/dL (31-35); MEAN CORPUSCULAR VOLUME 92.7 fL (81-99); MONOCYTES # (AUTO) 0.9 (0.2-0.8); MONOCYTES % 6.8 % (4.4-11.3); NEUTROPHILS # (AUTO) 10.7 (2.1-6.9); NEUTROPHILS % 81.2 % (38.7-80.0); PLATELET COUNT 217 x10e3/uL (140-360); RED BLOOD COUNT 3.17 x10e6/uL (3.6-5.1); RED CELL DISTRIBUTION WIDTH 13.7 % (11.7-14.4)
[2017-11-01 04:00] VITALS: BP 104/64
[2017-11-01 04:20] LABS: ALANINE AMINOTRANSFERASE 25 IU/L (0-55); ALBUMIN 2.6 g/dL (3.5-5.0); ALKALINE PHOSPHATASE 100 IU/L (40-150); ANION GAP 11.7 mmol/L (8-16); BILIRUBIN,DIRECT 0.9 mg/dL (0.0-0.5); BLOOD UREA NITROGEN 13 mg/dL (7-26); BUN/CREATININE RATIO 17 (6-25); CALCIUM 9.5 mg/dL (8.4-10.2); CARBON DIOXIDE 25 mmol/L (22-29); CHLORIDE 104 mmol/L (98-107); CREATININE, SERUM 0.76 mg/dL (0.57-1.11); EST GLOMERULAR FILTRATION RATE > 60 ML/MIN (60-); GLUCOSE 130 mg/dL (74-118); MAGNESIUM 1.7 MG/DL (1.3-2.1); POTASSIUM 3.7 mmol/L (3.5-5.1); SODIUM 137 mmol/L (136-145)
[2017-11-01] MEDS: TRAMADOL HCL 50 MG TAB PO PRN ×3 (06:31→23:19)
[2017-11-01] MEDS: INSULIN REGULAR, HUMAN 100 UNIT/1 ML 3ML VIAL SQ SCH ×4 (07:30→20:11)
[2017-11-01 08:09] VITALS: BP 103/51
[2017-11-01] MEDS ORDERED: TYLENOL # 31 EA PO ×2 (08:12→08:13)
[2017-11-01] MEDS ORDERED: COLACE100 M1 PO (08:12)
[2017-11-01] MEDS: PANTOPRAZOLE 40 MG 10ML VIAL IV SCH (08:58)
[2017-11-01] MEDS: METFORMIN HCL 500 MG TAB PO SCH ×2 (08:58→16:58)
[2017-11-01] MEDS: DOCUSATE SODIUM 100 MG CAP PO SCH ×2 (08:58→16:58)
[2017-11-01 09:00] VITALS: BP 103/57
[2017-11-01] MEDS: ENALAPRIL MALEATE 10 MG TAB PO SCH (09:00)
[2017-11-01] MEDS: AMLODIPINE BESYLATE 10 MG TAB PO SCH (09:00)
[2017-11-01 20:11] VITALS: BP 107/52
[2017-11-01] MEDS: SIMVASTATIN 20 MG TAB PO SCH (20:11)
[2017-11-02] VITALS: BP 93/55
[2017-11-02 03:40] LABS: BASOPHILS # (AUTO) 0.1 (0.0-0.1); BASOPHILS % 0.7 % (0.0-1.0); EOSINOPHILS # (AUTO) 0.3 (0.0-0.4); EOSINOPHILS % 3.4 % (0.0-6.0); HEMATOCRIT 28.6 % (34.2-44.1); HEMOGLOBIN 9.6 g/dL (12.0-16.0); LYMPHOCYTES # (AUTO) 1.2 (1.0-3.2); MEAN CORPUSCULAR HEMOGLOBIN 31.4 pg (28-32); MEAN CORPUSCULAR HGB CONC 33.6 g/dL (31-35); MEAN CORPUSCULAR VOLUME 93.5 fL (81-99); MONOCYTES # (AUTO) 0.7 (0.2-0.8); MONOCYTES % 7.4 % (4.4-11.3); NEUTROPHILS # (AUTO) 6.6 (2.1-6.9); NEUTROPHILS % 74.3 % (38.7-80.0); PLATELET COUNT 227 x10e3/uL (140-360); RED BLOOD COUNT 3.06 x10e6/uL (3.6-5.1); RED CELL DISTRIBUTION WIDTH 13.6 % (11.7-14.4)
[2017-11-02 04:00] VITALS: BP 138/63
[2017-11-02 04:06] LABS: ANION GAP 11.6 mmol/L (8-16); BLOOD UREA NITROGEN 12 mg/dL (7-26); BUN/CREATININE RATIO 16 (6-25); CALCIUM 9.2 mg/dL (8.4-10.2); CARBON DIOXIDE 26 mmol/L (22-29); CHLORIDE 100 mmol/L (98-107); CREATININE, SERUM 0.73 mg/dL (0.57-1.11); EST GLOMERULAR FILTRATION RATE > 60 ML/MIN (60-); GLUCOSE 130 mg/dL (74-118); MAGNESIUM 1.6 MG/DL (1.3-2.1); POTASSIUM 3.6 mmol/L (3.5-5.1); SODIUM 134 mmol/L (136-145)
[2017-11-02] MEDS: PIPER-TAZ 3.375 GM / NS 50ML IV SCH (06:25)
[2017-11-02] MEDS: INSULIN REGULAR, HUMAN 100 UNIT/1 ML 3ML VIAL SQ SCH (07:30)
[2017-11-02] MEDS: ENALAPRIL MALEATE 10 MG TAB PO SCH (08:38)
[2017-11-02] MEDS: AMLODIPINE BESYLATE 10 MG TAB PO SCH (08:38)
[2017-11-02] MEDS: PANTOPRAZOLE 40 MG 10ML VIAL IV SCH (08:38)
[2017-11-02] MEDS: METFORMIN HCL 500 MG TAB PO SCH (08:38)
[2017-11-02] MEDS: DOCUSATE SODIUM 100 MG CAP PO SCH (08:38)
[2017-11-02 08:39] VITALS: BP 108/51
[2017-11-02] MEDS: TRAMADOL HCL 50 MG TAB PO PRN (08:46)
--- NOTE | 2017-11-03 19:23 | Discharge Summary ---
ADMITTING DIAGNOSES 1. Right lateral ventral spigelian hernia. 2. Cholelithiasis. 3. Hypertension. 4. Hyperlipidemia. 5. Bradycardia. 6. Obesity. 7. Type-2 diabetes. DISCHARGE DIAGNOSES 1. Right lateral ventral spigelian hernia. 2. Cholelithiasis. 3. Hypertension. 4. Hyperlipidemia. 5. Bradycardia. 6. Obesity. 7. Type-2 diabetes. 8. Hyponatremia. HISTORY: The patient has a history of hyperlipidemia, type-2 diabetes, hypertension. Surgical history of right shoulder surgery, right inguinal hernia repair, abdominal hernia repair, and left knee surgery. HOSPITAL COURSE: This 67-year-old female complained of constant, sharp, abdominal pain in the right lower quadrant that began around 4 p.m. prior to admission. She denies nausea, vomiting, diarrhea, or fever. Her last bowel movement was 2 days ago. No flatus. The pain improved with medication. Nothing makes the pain worse. Upon admission, the patient had a CAT scan of the abdomen, which showed a stable right lateral hernia containing cecum without obstruction or bowel wall thickening. The patient also had an ultrasound of the gallbladder which showed cholelithiasis/sludge with mild gallbladder wall thickening. Surgery was consulted. On October 29, the patient had a lap maryana and a right hernia repair. The patient tolerated the procedure well. She was able to tolerate clear liquids on day #1, full liquids on day #2, and a regular diet on day #3. Prior to discharge, the patient had a bowel movement, and her pain was controlled on Tylenol No. 3. She was discharged home with Tylenol No. 3 and stool softeners. She agrees with the discharge plan and will follow up with surgery in 1 to 2 weeks. On the day of discharge, sodium was 134, potassium 3.5, creatinine 0.73, GFR over 60. WBC 8.8, hemoglobin 9.6, hematocrit 28.6. Vital signs were stable. The patient was afebrile. Dictated by: Keena Pool NP ART GONSALEZ MD Job#: [id number]
== END 2017-11-02 10:14 | disposition home or self-care (01) | DRG 354 ==
LOC: ER 20:01 → ERHOLD 10-27 02:13 → MED/SURG 10-27 03:20
PROVIDERS: ADMIT Internal Medicine; ATTEND Internal Medicine
PROC: 0WUF0JZ Supplement Abdominal Wall with Synthetic Substitute, Open Approach (ICD-10-PCS; principal; 2017-10-29 12:30)
PROC: 0FT44ZZ Resection of Gallbladder, Percutaneous Endoscopic Approach (ICD-10-PCS; 2017-10-29 12:30)
DX: K43.2 Incisional hernia without obstruction or gangrene (principal); K80.10 Calculus of gallbladder with chronic cholecystitis without obstruction; E87.1 Hypo-osmolality and hyponatremia; I10 Essential (primary) hypertension; E11.9 Type 2 diabetes mellitus without complications; E78.5 Hyperlipidemia, unspecified; Z83.3 Family history of diabetes mellitus; Z80.9 Family history of malignant neoplasm, unspecified; R00.1 Bradycardia, unspecified; E66.9 Obesity, unspecified; Z68.33 Body mass index [BMI] 33.0-33.9, adult
CPT/HCPCS: 36415; 71045; 74178; 76705; 80048; 80053; 80061; 80076; 81001; 82150; 82550; 82553; 82948; 83036; 83605; 83690; 83735; 83880; 84439; 84443; 84484; 85025; 87040; 87086; 88304; 93005; 96374; 96375; 99284; C1781; J0694; J1100; J2001; J2250; J2270; J2405; J2543; J7030; J7050; Q9967